=== PATIENT | female | born 1945 | race Caucasian/White ===

== ENCOUNTER 2020-06-27 12:02 | Outpatient (CLI) | payer MEDICARE, SELFPAY ==
--- NOTE | ~2020-06-27 | NM_ITS ---
EXAMINATION: NM bone 3 phase DATE: 06/27/2020 15:35 INDICATION: Mechanical complication of internal prosthesis at the right knee. TECHNIQUE: 22.9 mCi Tc-99m HDP by intravenous route. Scintigrams of the lateral knees were obtained in angiographic, blood pool, and delayed phases. COMPARISON: Right knee radiographs dated 11/28/2015 FINDINGS: Photopenic defect at the right knee corresponding to a right total knee arthroplasty. There is 3 phas e increased uptake at the lateral aspect of the lateral condyle of the distal right femur, relatively subtle on the angiographic phase. There is mild increased activity seen only on the delayed images a long all 3 compartments of the right knee arthroplasty which is slightly greater than normal for a ch ronic arthroplasty. IMPRESSION: 1. Right total knee arthroplasty with matched 3 phase increased uptake along the lateral margin of t he right lateral femoral condyle which is nonspecific but suggesting inflammatory bronchial process w hich could be infectious, rheumatologic or posttraumatic. Recommend correlation with plain radiograph s. 2. Decreased uptake slightly greater than typical at the margins of all 3 components of a right total knee arthroplasty and would correlate with plain radiographs for evidence of loosening. Reviewed, dictated and finalized at location A. IMPRESSION: 1. Right total knee arthroplasty with matched 3 phase increased uptake along t he lateral margin of the right lateral femoral condyle which is nonspecific but suggesting inflammatory bronchial process which could be infectious, rheumatol ogic or posttraumatic. Recommend correlation with plain radiographs. 2. Decreased uptake slightly greater than typical at the margins of all 3 compo nents of a right total knee arthroplasty and would correlate with plain radiogr aphs for evidence of loosening.
== END 2020-06-27 12:03 | disposition home or self-care (01) ==
PROVIDERS: PCP Family Medicine; Visit Provider Orthopaedic Surgery
DX: T85.698A Other mechanical complication of other specified internal prosthetic devices, implants and grafts, initial encounter (principal); T84.039A Mechanical loosening of unspecified internal prosthetic joint, initial encounter
CPT/HCPCS: 78315; A9561

== ENCOUNTER → 2020-06-28 13:18 | Outpatient (CLI) | payer MEDICARE, SELFPAY ==
--- NOTE | ~2020-06-28 | CT_ITS ---
EXAMINATION: CT knee RT wo con DATE: 06/28/2020 13:41 INDICATION: Right total knee arthroplasty with mechanical complication of implant. TECHNIQUE: High resolution computed tomography (CT) of the right knee was performed without intraveno us contrast. Additional sagittal and coronal reconstructions were performed. Automated exposure contr ol and iterative reconstruction technique were employed. The dose-length product was 162.71 mGy-cm. COMPARISON: 11/28/2015 FINDINGS: Right total knee arthroplasty with patellar resurfacing which is in near-anatomic alignment. No perip rosthetic lucency to suggest loosening or infection. No fracture. Joint capsular thickening at the pe riphery of a small to moderate-sized effusion at the suprapatellar pouch. Soft tissues appear otherwi se unremarkable. IMPRESSION: 1. Right total knee arthroplasty appears well seated with no acute osseous abnormality. 2. Small to moderate right knee joint effusion. If there is clinical concern for infection/septic art hritis recommend diagnostic arthrocentesis. Reviewed, dictated and finalized at location A. IMPRESSION: 1. Right total knee arthroplasty appears well seated with no acute osseous abno rmality. 2. Small to moderate right knee joint effusion. If there is clinical concern fo r infection/septic arthritis recommend diagnostic arthrocentesis.
== END ==
PROVIDERS: PCP Family Medicine; Visit Provider Orthopaedic Surgery
DX: T85.698A Other mechanical complication of other specified internal prosthetic devices, implants and grafts, initial encounter (principal); T84.039A Mechanical loosening of unspecified internal prosthetic joint, initial encounter; M25.461 Effusion, right knee
CPT/HCPCS: 73700

== ENCOUNTER 2020-06-28 13:37 | Outpatient (CLI) | payer MEDICARE, SELFPAY ==
[2020-06-28 14:12] LABS: Hematocrit 36.2 % (37.0-47.0); Hemoglobin 12.4 g/dL (12.0-15.0); Mean Corpuscular HGB Conc 34.3 g/dl (32-36); Mean Corpuscular Volume 93.3 fl (80-100); Platelet Count Result 215 k/mm3 (150-375); Red Blood Count 3.88 M/mm3 (4.2-5.4); White Blood Count 5.5 K/mm3 (4.5-10.0)
[2020-06-28 14:23] LABS: CRP < 0.5 mg/dL (<1.0)
[2020-06-28 15:16] LABS: Erythrocyte Sedimentation Rate 22 mm/hr (0-20)
== END 2020-06-28 13:38 | disposition home or self-care (01) ==
LOC: ANHLAB 13:43
PROVIDERS: PCP Family Medicine; Visit Provider Orthopaedic Surgery
DX: M25.561 Pain in right knee (principal); T85.698A Other mechanical complication of other specified internal prosthetic devices, implants and grafts, initial encounter; T84.039A Mechanical loosening of unspecified internal prosthetic joint, initial encounter
CPT/HCPCS: 36415; 85027; 85652; 86140

== ENCOUNTER 2020-09-28 13:07 | Outpatient (CLI) | payer MEDICARE, SELFPAY ==
--- NOTE | ~2020-09-28 | US_ITS ---
EXAMINATION: US knee asp inj w image RT DATE: 09/28/2020 14:23 INDICATION: Right total knee arthroplasty with knee joint effusion. TECHNIQUE: The procedure including the risks and benefits was discussed with the patient. Risks discu ssed included bleeding, infection and allergic reaction. The patient understood the risks and agreed to proceed. The skin overlying the suprapatellar pouch of the right knee was prepped and draped in u sual sterile fashion. Anesthetic was administered with 1% lidocaine subcutaneously. A 21-gauge needl e was advanced under continuous ultrasound observation into the joint effusion. When he milliliter o f clear frank-colored fluid was aspirated. The needle was removed and the entry site was cleaned and dressed. Post procedure ultrasound demonstrated no hemorrhage. FINDINGS: Ultrasound images demonstrate a small right knee joint effusion with needle in the fluid. T here is thickened hypoechoic synovium surrounding the suprapatellar pouch. IMPRESSION: 1. Successful Ultrasound-guided right knee joint aspiration. Reviewed, dictated and finalized at location A.
[2020-09-28 17:46] LABS: Appearance Synovial Fluid Hazy (Clear); Color Synovial Fluid Yellow (Colorless); Source Synovial Fluid Synovial fluid
[2020-09-28 17:47] LABS: Lymphocytes Synovial Fluid 44 %; Macrophages Synovial Fluid 48 %; Neutrophils Synovial Fluid 8 % (0-25)
[2020-09-28 17:48] LABS: Crystals Synovial Fluid None Seen (None Seen)
== END 2020-09-28 13:08 | disposition home or self-care (01) ==
PROVIDERS: PCP Family Medicine; Visit Provider Orthopaedic Surgery
DX: T84.092A Other mechanical complication of internal right knee prosthesis, initial encounter (principal); Y83.8 Other surgical procedures as the cause of abnormal reaction of the patient, or of later complication, without mention of misadventure at the time of the procedure
CPT/HCPCS: 20611; 87070; 87075; 87076; 87205; 88108; 89051; 89060

== ENCOUNTER 2020-10-03 09:58 | Outpatient (CLI) | payer MEDICARE, SELFPAY ==
--- NOTE | 2020-10-03 10:53 | ECG_ITS ---
Measurements Intervals [place] Rate: 72 P: 64 ND: 152 QRS: 53 QRSD: 81 T: 61 QT: 362 QTc: 397 Interpretive Statements SINUS RHYTHM BASELINE ARTIFACT- I, II, III, AVR, AVL, AVF NORMAL ECG Electronically Signed On 10-03-2020 12:24:13 CDT by Slava Ivy D.O.
[2020-10-03 11:09] LABS: Basophils Absolute Auto 0.1 K/mm3 (0.0-0.1); Basophils Percent Auto 0.9 % (0.2-1.2); Eosinophils Absolute Auto 0.2 K/mm3 (0-0.3); Eosinophils Percent Auto 2.3 % (0-4.4); Hematocrit 39.8 % (37.0-47.0); Hemoglobin 12.9 g/dL (12.0-15.0); Immature Granulocyte Absolute 0.02 K/mm3 (0.00-0.031); Immature Granulocyte Percent A 0.3 % (0-0.5); Lymphocytes Percent Auto 20.2 % (18.3-44.2); Mean Corpuscular HGB Conc 32.4 g/dl (32-36); Mean Corpuscular Hemoglobin 31.5 pg (26-34); Mean Corpuscular Volume 97.3 fl (80-100); Mean Platelet Volume 8.9 fl (7.4-10.4); Monocytes Absolute Auto 0.6 K/mm3 (0.1-0.6); Monocytes Percent Auto 8.5 % (2.6-8.5); Neutrophils Absolute Auto 4.7 K/mm3 (1.3-6.7); Neutrophils Percent Auto 67.8 % (45.5-73.1); Platelet Count Result 216 k/mm3 (150-375); Red Blood Count 4.09 M/mm3 (4.2-5.4); Red Cell Distribution Width 12.6 % (11.5-14.5); White Blood Count 6.9 K/mm3 (4.5-10.0)
[2020-10-03 11:20] LABS: Albumin Level 4.2 g/dL (3.5-5.1)
[2020-10-03 11:25] LABS: Anion Gap 8 mmol/L (8-16); Blood Urea Nitrogen 16 mg/dL (7-17); Calcium 9.1 mg/dL (8.4-10.2); Carbon Dioxide 29 mmol/L (22-30); Chloride 98 mmol/L (98-107); Estimated Glomerular Filt Rate 48; Glucose 103 mg/dL (65-110); Sodium 135 mmol/L (137-145)
[2020-10-03 11:40] LABS: Urine Cotinine NEGATIVE
== END 2020-10-03 09:59 | disposition home or self-care (01) ==
LOC: ANHSURGERY 09:59
PROVIDERS: Anesthesiology; PCP Family Medicine; Visit Provider Orthopaedic Surgery
DX: Z01.818 Encounter for other preprocedural examination (principal); T84.012A Broken internal right knee prosthesis, initial encounter; I10 Essential (primary) hypertension
CPT/HCPCS: 80048; 80307; 82040; 83036; 85025; 86850; 86880; 86900; 86901; 86902; 86922; 93005

== ENCOUNTER 2020-10-25 17:46 | Outpatient (NON) | payer MEDICARE, SELFPAY ==
[2020-10-25 19:23] LABS: Appearance Synovial Fluid Hazy (Clear); Color Synovial Fluid Yellow (Colorless); Lymphocytes Synovial Fluid 36 %; Neutrophils Synovial Fluid 54 % (0-25); Nucleated Cell Synovial Fluid 37 /uL (0-200); RBC Synovial Fluid 3545 /uL (0-0); Source Synovial Fluid Synovial fluid
[2020-10-25 19:24] LABS: Crystals Synovial Fluid None Seen (None Seen); Macrophages Synovial Fluid 10 %
== END 2020-10-25 17:47 | disposition home or self-care (01) ==
LOC: HOME HLTH 17:47
PROVIDERS: PCP Family Medicine; Visit Provider Orthopaedic Surgery
DX: T85.698D Other mechanical complication of other specified internal prosthetic devices, implants and grafts, subsequent encounter (principal)
CPT/HCPCS: 85060; 87070; 87075; 87077; 87205; 89051; 89060

== ENCOUNTER 2021-03-01 11:49 | Outpatient (CLI) | payer MEDICARE, SELFPAY ==
[2021-03-01 13:52] LABS: Albumin Level 4.2 g/dL (3.5-5.1); Basophils Absolute Auto 0.1 K/mm3 (0.0-0.1); Basophils Percent Auto 0.8 % (0.2-1.2); Eosinophils Absolute Auto 0.1 K/mm3 (0-0.3); Eosinophils Percent Auto 2.2 % (0-4.4); Hematocrit 39.3 % (37.0-47.0); Hemoglobin 13.2 g/dL (12.0-15.0); Immature Granulocyte Absolute 0.01 K/mm3 (0.00-0.031); Immature Granulocyte Percent A 0.2 % (0-0.5); Lymphocytes Absolute Auto 1.24 K/mm3 (0.9-3.2); Lymphocytes Percent Auto 19.6 % (18.3-44.2); Mean Corpuscular HGB Conc 33.6 g/dl (32-36); Mean Corpuscular Hemoglobin 32.3 pg (26-34); Mean Corpuscular Volume 96.1 fl (80-100); Monocytes Absolute Auto 0.6 K/mm3 (0.1-0.6); Monocytes Percent Auto 9.1 % (2.6-8.5); Neutrophils Absolute Auto 4.3 K/mm3 (1.3-6.7); Neutrophils Percent Auto 68.1 % (45.5-73.1); Platelet Count Result 192 k/mm3 (150-375); Red Blood Count 4.09 M/mm3 (4.2-5.4); Red Cell Distribution Width 12.9 % (11.5-14.5); White Blood Count 6.3 K/mm3 (4.5-10.0)
[2021-03-01 13:56] LABS: Anion Gap 8 mmol/L (8-16); Blood Urea Nitrogen 20 mg/dL (7-17); Calcium 9.1 mg/dL (8.4-10.2); Carbon Dioxide 28 mmol/L (22-30); Chloride 96 mmol/L (98-107); Estimated Glomerular Filt Rate 44; Glucose 94 mg/dL (65-110); Potassium 4.1 mmol/L (3.4-5.0); Sodium 132 mmol/L (137-145)
[2021-03-01 13:59] LABS: Urine Cotinine NEGATIVE
== END 2021-03-01 11:50 | disposition home or self-care (01) ==
PROVIDERS: Anesthesiology; PCP Family Medicine; Visit Provider Orthopaedic Surgery
DX: T84.012A Broken internal right knee prosthesis, initial encounter (principal); Z51.81 Encounter for therapeutic drug level monitoring; Z79.899 Other long term (current) drug therapy
CPT/HCPCS: 36415; 80048; 80307; 82040; 83036; 85025; 87081

== ENCOUNTER 2021-08-04 18:43 | Emergency (ER) | payer MEDICARE, SELFPAY ==
--- NOTE | 2021-08-04 18:51 | ED.DENTAL ---
HPI - Dental/Oral General Chief complaint: Dental/Oral Stated complaint: toothache Time Seen by Provider: 08/04/21 18:51 Source: patient Mode of arrival: ambulatory Limitations: no limitations History of Present Illness HPI Narrative: Ms. Rm is a 75-year-old female patient presenting to the clinic today with complaints of dental pain x1 month that has gradually gotten worse. She reports she had contacted her dentist and they gave her Tylenol 3's. Denies any fever or chills. Has taken 3 total doses of the Tylenol codeine in the stated that the first 1 at the last 2 doses have not helped. She reports that she has a dental bridge to the left upper molars that has broken. Is unable to get into an emergency dentist. Related Data Home Medications Medication Instructions Recorded Confirmed acetaminophen 300 mg-codeine 30 mg tablet 08/04/21 tablet atorvastatin 20 mg tablet tablet 08/04/21 bupropion HCl 150 mg 24 hr tablet, tablet PO 08/04/21 extended release lisinopril 20 mg tablet tablet 08/04/21 paroxetine HCl 30 mg tablet tablet PO 08/04/21 Allergies Allergy/AdvReac Type Severity Reaction Status Date / Time No Known Allergies Allergy Verified 08/04/21 19:00 Review of Systems Review of Systems: Pertinent positives per HPI. Patient denies any fever, chills, rash, headache, visual changes, dizziness, cough, runny nose, sore throat, shortness of breath, chest pain, palpitations, nausea, vomiting, diarrhea, constipation, abdominal pain, or any urinary issues. PMFSH Social History Social History Smoking packs per day: 1 Smoking cigarettes per day: 20.0 Years smoked: 25 Smoking pack-years: 25.00 Smoking status: Former smoker Tobacco type: cigarettes Smoking end date: 08/25/14 Additional smoking assessment comments: 42 Substance use: never Additional living arrangements comments: [facility] Spiritual care concerns: No Comments At the time of my signature, I reviewed and agree with the nursing past medical, surgical, social, and family history. There is no relevant family history pertinent to the patient complaint. Exam Narrative: General: Well-developed, well nourished, in no apparent distress Head: Normocephalic, atraumatic. Mouth: Oropharynx without lesions or masses, poor dentition, decayed number 15 with gingival swelling, MMM. Neck: Supple, trachea midline, no enlargement of anterior or posterior cervical nodes, no thyroid masses or goiter palpable. Cardio: Regular rate and rhythm, s1 and s2 normal, no murmur appreciated. Resp: Clear to auscultation bilaterally anteriorly and posteriorly, no rhonchi, rales, wheezing or rubs Course Course Emergency Course: Portions of this record may have been created with voice recognition software. Level of Care: Express Care Visit Vital Signs Vital signs: Vital Signs Temperature 35.8 C L 08/04/21 18:54 Pulse Rate 79 08/04/21 18:54 Respiratory Rate 18 08/04/21 18:54 Blood Pressure 156/86 H 08/04/21 18:54 Pulse Oximetry 100 08/04/21 18:54 Oxygen Delivery Room Air 08/04/21 18:54 Temperature 35.8 C L 08/04/21 18:54 Pulse Rate 79 08/04/21 18:54 Respiratory Rate 18 08/04/21 18:54 Blood Pressure 156/86 H 08/04/21 18:54 Pulse Oximetry 100 08/04/21 18:54 Oxygen Delivery Room Air 08/04/21 18:54 Vital signs reviewed MDM - Dental/Oral MDM Narrative Medical decision making narrative: At the time of visit patient is resting on the exam table in 10 out of 10 pain. She has attempted to take 3 doses total of her Tylenol with codeine and this does not seem to be helping her pain after the first dose. I will go ahead and give her a shot of Toradol 60 mg IM in the clinic for pain and place her on some amoxicillin for probable dental infection. She is to follow-up with her dentist as soon as possible. Supportive measures were discussed and pat
[2021-08-04 18:54] VITALS: BP 156/86; PULSE 79; RESP 18; TEMP 35.8; O2SAT 100
[2021-08-04] MEDS: KETOROLAC (*BKC) 60 MG/2 ML VIAL IM (19:04)
== END 2021-08-04 19:34 | disposition home or self-care (01) ==
PROVIDERS: Emergency Provider Nurse Practitioner Family; PCP Family Medicine
DX: K02.9 Dental caries, unspecified (principal); Z87.891 Personal history of nicotine dependence; E78.00 Pure hypercholesterolemia, unspecified; I10 Essential (primary) hypertension; J44.9 Chronic obstructive pulmonary disease, unspecified; Z96.651 Presence of right artificial knee joint; F41.9 Anxiety disorder, unspecified; F32.A Depression, unspecified
CPT/HCPCS: 96372; 99213; G0463; J1885

== ENCOUNTER 2021-09-24 06:04 | Emergency (ER) | payer MEDICARE, SELFPAY ==
[2021-09-24 06:18] VITALS: BP 169/87; PULSE 103; RESP 24; TEMP 36.7; O2SAT 100
--- NOTE | 2021-09-24 06:39 | PC.NURSE ---
approached triage desk and states I know you guys are busy, were just going to go . Educated on risks of leaving and benefits of staying to see provider, verbalized understanding. pt ambulated out of ED in no obvious distress.
[2021-09-24 06:47] LABS: Basophils Absolute Auto 0.1 K/mm3 (0.0-0.1); Basophils Percent Auto 0.4 % (0.2-1.2); Eosinophils Absolute Auto 0.1 K/mm3 (0-0.3); Eosinophils Percent Auto 0.3 % (0-4.4); Hematocrit 42.5 % (37.0-47.0); Immature Granulocyte Absolute 0.07 K/mm3 (0.00-0.031); Immature Granulocyte Percent A 0.4 % (0-0.5); Lymphocytes Absolute Auto 1.03 K/mm3 (0.9-3.2); Lymphocytes Percent Auto 6.4 % (18.3-44.2); Mean Corpuscular HGB Conc 32.9 g/dl (32-36); Mean Corpuscular Hemoglobin 31.7 pg (26-34); Mean Corpuscular Volume 96.4 fl (80-100); Mean Platelet Volume 9.7 fl (7.4-10.4); Monocytes Absolute Auto 1.1 K/mm3 (0.1-0.6); Monocytes Percent Auto 6.6 % (2.6-8.5); Neutrophils Absolute Auto 13.8 K/mm3 (1.3-6.7); Neutrophils Percent Auto 85.9 % (45.5-73.1); Platelet Count Result 239 k/mm3 (150-375); Red Blood Count 4.41 M/mm3 (4.2-5.4); Red Cell Distribution Width 12.4 % (11.5-14.5); White Blood Count 16.1 K/mm3 (4.5-10.0)
[2021-09-24 07:00] LABS: Alanine Aminotransferase 25 U/L (6-35); Albumin Level 4.3 g/dL (3.5-5.1); Alkaline Phosphatase 99 U/L (38-126); Anion Gap 9 mmol/L (8-16); Aspartate Amino Transferase 26 U/L (14-36); Bilirubin,Total 0.8 mg/dL (0.2-1.3); Blood Urea Nitrogen 18 mg/dL (7-17); Calcium 8.6 mg/dL (8.4-10.2); Carbon Dioxide 26 mmol/L (22-30); Chloride 99 mmol/L (98-107); Estimated CRCL calculation 45 ml/min; Estimated Glomerular Filt Rate > 60; Glucose 143 mg/dL (65-110); Lipase 113 U/L (23-300); Sodium 134 mmol/L (137-145)
== END 2021-09-24 07:17 | disposition left against medical advice (07) ==
LOC: ANHED 06:48
PROVIDERS: Emergency Provider Emergency Medicine; PCP Family Medicine
DX: R10.10 Upper abdominal pain, unspecified (principal)
CPT/HCPCS: 36415; 80053; 83690; 85025; 99199